=== PATIENT | female | born 2000 | race African-American/Black ===

== ENCOUNTER 2022-08-06 12:24 | Inpatient (IN) | payer MEDICAID ==
[2022-08-06] VITALS (9 sets, daily range): BP systolic 111–131
[~2022-08-06] VITALS: Ht 167.6 cm; Wt 63.5 kg
[2022-08-06 13:29] LABS: BASOPHILS % (AUTO) 0.6 % (0.0-2.0); HEMATOCRIT 41.2 % (36-48); HEMOGLOBIN 13.7 g/dL (12.0-16.0); LYMPHOCYTES # (AUTO) 0.7 K/uL (1.0-5.5); LYMPHOCYTES % (AUTO) 18.4 % (20.5-51.5); MEAN CORPUSCULAR HEMOGLOBIN 32 pg (27-31); MEAN CORPUSCULAR HGB CONC 33 % (32-36); MEAN CORPUSCULAR VOLUME 95 fL (79.0-98.0); MONOCYTES # (AUTO) 0.2 K/uL (0.0-1.0); MONOCYTES % (AUTO) 5.8 % (1.7-9.3); NEUTROPHILS # (AUTO) 2.7 K/uL (1.8-7.7); NEUTROPHILS % (AUTO) 75.2 % (40.0-70.0); PLATELET COUNT (AUTO) 313 K/uL (130-430); RED BLOOD CELL COUNT(AUTO) 4.35 MIL/uL (4.2-6.2); RED CELL DISTRIBUTION WIDTH 14.2 % (9.0-15.0); WHITE BLOOD COUNT (AUTO) 3.6 K/uL (4.8-10.8)
[2022-08-06] MEDS ORDERED: ONDANSETRON HCL 4 MG/2 ML VIAL IVP ONE (13:30)
[2022-08-06 13:40] LABS: ANION GAP 11 (5-15); CALCIUM 8.7 mg/dL (8.4-11.0); CHLORIDE 103 mmol/L (98-107); CREATININE 0.75 mg/dL (0.55-1.30); GFR AFRICAN AMERICAN 123 mL/min (>90); GLUCOSE 125 mg/dL (70-99); UREA NITROGEN, BLOOD 10 mg/dL (8-21)
[2022-08-06 13:44] LABS: ALANINE AMINOTRANSFERASE 16 U/L (12-78); ALBUMIN 4.2 g/dL (3.4-4.8); ALCOHOL, BLOOD < 3 mg/dL (<10); ASPARTATE AMINOTRANSFERASE 22 U/L (10-37); TOTAL BILIRUBIN 0.9 mg/dL (0.0-1.0)
[2022-08-06 13:45] LABS: ACETAMINOPHEN 86 ug/mL (1-30)
[2022-08-06] MEDS ORDERED: ACETYLCYSTEINE IV 0 MG in D5W 200 ML IV ONE (14:00)
[2022-08-06] MEDS ORDERED: D5W IV ONE (14:30)
[2022-08-06] MEDS ORDERED: ACETYLCYSTEINE IV ONE (14:30)
[2022-08-06] MEDS: D5/0.45 NS 1,000 ML IV SCH (15:05)
[2022-08-06] MEDS ORDERED: LORazepam 2 MG/ML VIAL IVP PRN (18:45)
[2022-08-07] VITALS (18 sets, daily range): BP systolic 98–127
[2022-08-07] MEDS: D5/0.45 NS 1,000 ML IV SCH ×2 (01:04→13:47)
[2022-08-07 05:08] LABS: BASOPHILS % (AUTO) 0.7 % (0.0-2.0); EOSINOPHILS % (AUTO) 0.6 % (0.0-4.0); HEMATOCRIT 36.3 % (36-48); HEMOGLOBIN 12.2 g/dL (12.0-16.0); LYMPHOCYTES # (AUTO) 2.1 K/uL (1.0-5.5); LYMPHOCYTES % (AUTO) 29.1 % (20.5-51.5); MEAN CORPUSCULAR HEMOGLOBIN 32 pg (27-31); MEAN CORPUSCULAR HGB CONC 34 % (32-36); MEAN CORPUSCULAR VOLUME 95 fL (79.0-98.0); MONOCYTES # (AUTO) 0.7 K/uL (0.0-1.0); MONOCYTES % (AUTO) 9.4 % (1.7-9.3); NEUTROPHILS # (AUTO) 4.3 K/uL (1.8-7.7); NEUTROPHILS % (AUTO) 60.2 % (40.0-70.0); PLATELET COUNT (AUTO) 250 K/uL (130-430); RED BLOOD CELL COUNT(AUTO) 3.83 MIL/uL (4.2-6.2); RED CELL DISTRIBUTION WIDTH 13.9 % (9.0-15.0); WHITE BLOOD COUNT (AUTO) 7.2 K/uL (4.8-10.8)
[2022-08-07 05:30] LABS: ALBUMIN 3.1 g/dL (3.4-4.8); CALCIUM 7.6 mg/dL (8.4-11.0); CREATININE 0.67 mg/dL (0.55-1.30); PHOSPHORUS 2.8 mg/dL (2.7-4.5); TOTAL BILIRUBIN 1.6 mg/dL (0.0-1.0)
[2022-08-07] MEDS ORDERED: KCL 20 mEq in 100 mL (PREMIX) 100 ML IV ONE ×2 (07:00→09:00)
[2022-08-07 11:50] LABS: INR 1.4 (0.8-1.2); PROTHROMBIN TIME 13.8 SECS (9.5-12.5)
[2022-08-07] MEDS: QUEtiapine FUMARATE 25 MG TABLET PO SCH (21:26)
[2022-08-07] MEDS: ONDANSETRON HCL 4 MG/2 ML VIAL IVP PRN (21:29)
[2022-08-08] VITALS: BP_SYST 100
[2022-08-08] MEDS: D5/0.45 NS 1,000 ML IV SCH ×3 (02:07→11:44)
[2022-08-08 08:03] VITALS: BP_SYST 119
[2022-08-08] MEDS: FLUoxetine HCL 10 MG CAPSULE (PROzac) PO SCH (08:38)
[2022-08-08] MEDS: KCL 20 mEq in 100 mL (PREMIX) 100 ML IV SCH ×2 (11:41→14:58)
[2022-08-08] MEDS: ONDANSETRON HCL 4 MG/2 ML VIAL IVP PRN (11:41)
[2022-08-08 12:00] VITALS: BP_SYST 110
[2022-08-08 16:00] VITALS: BP_SYST 122
[2022-08-08 20:36] VITALS: BP_SYST 137
[2022-08-08] MEDS: QUEtiapine FUMARATE 25 MG TABLET PO SCH (21:41)
[2022-08-09] VITALS: BP_SYST 129
[2022-08-09] MEDS: D5/0.45 NS 1,000 ML IV SCH (03:00)
[2022-08-09 07:49] VITALS: BP_SYST 94
[2022-08-09 07:49] LABS: BASOPHILS % (AUTO) 0.9 % (0.0-2.0); EOSINOPHILS # (AUTO) 0.1 K/uL (0.0-0.4); EOSINOPHILS % (AUTO) 2.4 % (0.0-4.0); HEMATOCRIT 36.5 % (36-48); HEMOGLOBIN 12.2 g/dL (12.0-16.0); LYMPHOCYTES # (AUTO) 1.1 K/uL (1.0-5.5); LYMPHOCYTES % (AUTO) 28.5 % (20.5-51.5); MEAN CORPUSCULAR HEMOGLOBIN 32 pg (27-31); MEAN CORPUSCULAR HGB CONC 33 % (32-36); MEAN CORPUSCULAR VOLUME 95 fL (79.0-98.0); MONOCYTES # (AUTO) 0.7 K/uL (0.0-1.0); MONOCYTES % (AUTO) 17.3 % (1.7-9.3); NEUTROPHILS % (AUTO) 50.9 % (40.0-70.0); PLATELET COUNT (AUTO) 231 K/uL (130-430); RED BLOOD CELL COUNT(AUTO) 3.84 MIL/uL (4.2-6.2); RED CELL DISTRIBUTION WIDTH 14.2 % (9.0-15.0)
[2022-08-09 07:54] LABS: CREATININE 0.57 mg/dL (0.55-1.30)
[2022-08-09] MEDS: FLUoxetine HCL 10 MG CAPSULE (PROzac) PO SCH (09:24)
[2022-08-09 12:03] VITALS: BP_SYST 96
[2022-08-09 15:47] VITALS: BP_SYST 115
[2022-08-09] MEDS: NORMAL SALINE 5 ML DISP.SYRIN IVF SCH ×2 (16:29→20:58)
[2022-08-09 20:00] VITALS: BP_SYST 115
[2022-08-09] MEDS: QUEtiapine FUMARATE 25 MG TABLET PO SCH (20:56)
[2022-08-10] VITALS: BP_SYST 118
[2022-08-10] MEDS: NORMAL SALINE 5 ML DISP.SYRIN IVF SCH ×3 (06:14→21:18)
[2022-08-10 06:53] LABS: BASOPHILS % (AUTO) 0.8 % (0.0-2.0); EOSINOPHILS # (AUTO) 0.3 K/uL (0.0-0.4); HEMOGLOBIN 12.7 g/dL (12.0-16.0); LYMPHOCYTES # (AUTO) 2.1 K/uL (1.0-5.5); LYMPHOCYTES % (AUTO) 36.5 % (20.5-51.5); MEAN CORPUSCULAR HEMOGLOBIN 32 pg (27-31); MEAN CORPUSCULAR HGB CONC 33 % (32-36); MEAN CORPUSCULAR VOLUME 95 fL (79.0-98.0); MONOCYTES # (AUTO) 0.7 K/uL (0.0-1.0); MONOCYTES % (AUTO) 12.7 % (1.7-9.3); NEUTROPHILS # (AUTO) 2.6 K/uL (1.8-7.7); PLATELET COUNT (AUTO) 233 K/uL (130-430); RED BLOOD CELL COUNT(AUTO) 3.99 MIL/uL (4.2-6.2); WHITE BLOOD COUNT (AUTO) 5.9 K/uL (4.8-10.8)
[2022-08-10 07:05] LABS: CALCIUM 8.4 mg/dL (8.4-11.0); CREATININE 0.6 mg/dL (0.55-1.30)
[2022-08-10 08:00] VITALS: BP_SYST 118
[2022-08-10] MEDS: FLUoxetine HCL 10 MG CAPSULE (PROzac) PO SCH (09:03)
[2022-08-10 11:45] VITALS: BP_SYST 117
[2022-08-10] MEDS ORDERED: DOCUSATE SODIUM 100 MG CAPSULE PO PRN (13:00)
[2022-08-10 16:00] VITALS: BP_SYST 119
[2022-08-10 20:00] VITALS: BP_SYST 115; BP_SYST 145
[2022-08-10] MEDS: QUEtiapine FUMARATE 25 MG TABLET PO SCH (21:17)
[2022-08-11] VITALS: BP_SYST 115
[2022-08-11 06:19] LABS: BASOPHILS % (AUTO) 0.8 % (0.0-2.0); EOSINOPHILS # (AUTO) 0.3 K/uL (0.0-0.4); EOSINOPHILS % (AUTO) 4.5 % (0.0-4.0); HEMATOCRIT 37.9 % (36-48); HEMOGLOBIN 12.7 g/dL (12.0-16.0); LYMPHOCYTES # (AUTO) 2.3 K/uL (1.0-5.5); LYMPHOCYTES % (AUTO) 36.8 % (20.5-51.5); MEAN CORPUSCULAR HEMOGLOBIN 32 pg (27-31); MEAN CORPUSCULAR HGB CONC 34 % (32-36); MEAN CORPUSCULAR VOLUME 95 fL (79.0-98.0); MONOCYTES # (AUTO) 0.7 K/uL (0.0-1.0); MONOCYTES % (AUTO) 11.4 % (1.7-9.3); NEUTROPHILS # (AUTO) 2.9 K/uL (1.8-7.7); NEUTROPHILS % (AUTO) 46.5 % (40.0-70.0); PLATELET COUNT (AUTO) 271 K/uL (130-430); RED BLOOD CELL COUNT(AUTO) 3.98 MIL/uL (4.2-6.2); RED CELL DISTRIBUTION WIDTH 13.8 % (9.0-15.0); WHITE BLOOD COUNT (AUTO) 6.2 K/uL (4.8-10.8)
[2022-08-11 06:33] LABS: CALCIUM 8.8 mg/dL (8.4-11.0); CREATININE 0.64 mg/dL (0.55-1.30)
[2022-08-11 08:07] VITALS: BP_SYST 118
[2022-08-11] MEDS ORDERED: SER25 PO (10:13)
[2022-08-11] MEDS ORDERED: PRO10 PO (10:13)
[2022-08-11] MEDS ORDERED: DOCU-144 PO (10:13)
[2022-08-11] MEDS: FLUoxetine HCL 10 MG CAPSULE (PROzac) PO SCH (11:28)
[2022-08-11 12:45] VITALS: BP_SYST 114
== END 2022-08-11 14:00 | DRG 817 ==
LOC: SED 12:24 → SIC 14:57 → SMU 08-07 16:03
PROVIDERS: ADMIT Preventive Medicine Preventive Medicine/Occupational Environmental Medicine; ATTEND Preventive Medicine Preventive Medicine/Occupational Environmental Medicine
DX: T39.1X2A Poisoning by 4-Aminophenol derivatives, intentional self-harm, initial encounter (principal); E44.0 Moderate protein-calorie malnutrition; E83.51 Hypocalcemia; E88.09 Other disorders of plasma-protein metabolism, not elsewhere classified; E83.52 Hypercalcemia; E87.6 Hypokalemia; D72.819 Decreased white blood cell count, unspecified; Z20.822 Contact with and (suspected) exposure to COVID-19; F32.9 Major depressive disorder, single episode, unspecified; Z68.22 Body mass index [BMI] 22.0-22.9, adult; F12.20 Cannabis dependence, uncomplicated; R73.9 Hyperglycemia, unspecified; X58.XXXA Exposure to other specified factors, initial encounter; Z91.52 Personal history of nonsuicidal self-harm
CPT/HCPCS: 36415; 36600; 80048; 80053; 82803; 83735; 84100; 85025; 85610-TC; 87081; 93005; 96365; 96375; 99291; G0480; G0481; G0482; J0132; J2060; J2405; J3480; J7060